=== PATIENT | male | born 1960 | race Caucasian/White ===

== ENCOUNTER 2017-03-23 06:59 | Inpatient (IN) | payer BC, MEDICAID ==
[~2017-03-23] VITALS: Ht 193 cm; Wt 133.5 kg
--- NOTE | 2017-03-23 07:25 | PHYS DOC ---
Past Medical History Past Medical History: No Pertinent History Past Surgical History: No Surgical History Alcohol Use: None Drug Use: None Adult General Chief Complaint Chief Complaint: ABDOMINAL PAIN HPI HPI Patient is a 56 year old male with no past medical history presents the ED complaining of abdominal pain 4 days. Patient states his pain is in the right lower quadrant. Describes a stabbing. Rates pain 8 out of 10. Denies diarrhea, bowel/bladder changes, blood in stool, vomiting, fever, chest pain, shortness of breath. Review of Systems Review of Systems Constitutional: Denies fever or chills [] Eyes: Denies change in visual acuity, redness, or eye pain [] HENT: Denies nasal congestion or sore throat [] Respiratory: Denies cough or shortness of breath [] Cardiovascular: No additional information not addressed in HPI [] GI: Complains of abdominal pain. Denies nausea, vomiting, bloody stools or diarrhea [] : Denies dysuria or hematuria [] Musculoskeletal: Denies back pain or joint pain [] Integument: Denies rash or skin lesions [] Neurologic: Denies headache, focal weakness or sensory changes [] Endocrine: Denies polyuria or polydipsia [] Current Medications Current Medications Current Medications Medications (Trade) Dose Ordered Sig/Wilma Start Time Stop Time Status Last Admin Dose Admin Hydromorphone HCl (Dilaudid) 0.5 mg 1X ONCE 03/23/17 08:30 03/23/17 08:31 DC 03/23/17 08:29 0.5 MG Info (Do NOT chart on this entry -- for MONITORING) 1 each PRN DAILY PRN 03/23/17 08:45 03/25/17 08:44 Iohexol (Omnipaque 300 Mg/ml) 75 ml 1X ONCE 03/23/17 08:45 03/23/17 08:46 DC 03/23/17 08:46 75 ML Morphine Sulfate 4 mg 1X ONCE 03/23/17 07:30 03/23/17 07:31 DC 03/23/17 07:43 4 MG Ondansetron HCl (Zofran) 4 mg 1X ONCE 03/23/17 07:30 03/23/17 07:31 DC 03/23/17 07:40 4 MG Sodium Chloride 1,000 ml @ 1,000 mls/hr 1X ONCE 03/23/17 09:30 03/23/17 10:29 DC 03/23/17 09:34 1,000 MLS/HR Allergies Allergies Allergies Coded Allergies Type Severity Reaction Last Updated Verified No Known Drug Allergies 03/23/17 No Physical Exam Physical Exam Constitutional: Well developed, well nourished, no acute distress, non-toxic appearance. [] HENT: Normocephalic, atraumatic, bilateral external ears normal, oropharynx moist, no oral exudates, nose normal. [] Eyes: PERRLA, EOMI, conjunctiva normal, no discharge. [] Neck: Normal range of motion, no tenderness, supple, no stridor. [] Cardiovascular:Heart rate regular rhythm, no murmur [] Lungs & Thorax: Bilateral breath sounds clear to auscultation [] Abdomen: Bowel sounds normal, soft, MILD RLQ TENDERNESS, no masses, no pulsatile masses. [] Skin: Warm, dry, no erythema, no rash. [] Back: No tenderness, no CVA tenderness. [] Extremities: No tenderness, no cyanosis, no clubbing, ROM intact, no edema. [] Neurologic: Alert and oriented X 3, normal motor function, normal sensory function, no focal deficits noted. [] Psychologic: Affect normal, judgement normal, mood normal. [] Current Patient Data Vital Signs Vital Signs Date Time Temp Pulse Resp B/P (MAP) Pulse Ox O2 Delivery O2 Flow Rate FiO2 03/23/17 09:24 72 20 134/77 (96) 95 Room Air 03/23/17 07:11 98.8 98.8 Lab Values Laboratory Tests Test 03/23/17 07:27 03/23/17 09:20 White Blood Count 12.6 x10^3/uL (4.0-11.0) H Red Blood Count 4.46 x10^6/uL (4.30-5.70) Hemoglobin 14.0 g/dL (13.0-17.5) Hematocrit 40.4 % (39.0-53.0) Mean Corpuscular Volume 91 fL (79-100) Mean Corpuscular Hemoglobin 31 pg (25-35) Mean Corpuscular Hemoglobin Concent 35 g/dL (31-37) Red Cell Distribution Width 13.1 % (11.5-14.5) Platelet Count 295 x10^3/uL (140-400) Prothrombin Time 13.9 SEC (11.7-14.0) Prothrombin Time INR 1.1 (0.8-1.1) PTT 26 SEC (24-38) Sodium Level 140 mmol/L (136-145) Potassium Level 4.2 mmol/L (3.5-5.1) Chloride Level 103 mmol/L (98-107) Carbon Dioxide Level 28 mmol/L (21-32) Anion Gap 9 (6-14) Blood Urea Nitrogen 13 mg/dL (8-26) Creatinine 1.1 mg/dL (0.7-1.3) Estimated GFR (Cockcroft-Gault) 68.8 BUN/Creatinine Ratio 12 (6-20) Glucose Level 140 mg/dL (70-99) H Calcium Level 8.9 mg/dL (8.5-10.1) Total Bilirubin 1.2 mg/dL (0.2-1.0) H Aspartate Amino Transferase (AST) 26 U/L (15-37) Alanine Aminotransferase (ALT) 49 U/L (16-63) Alkaline Phosphatase 110 U/L (46-116) Total Protein 7.7 g/dL (6.4-8.2) Albumin 3.6 g/dL (3.4-5.0) Albumin/Globulin Ratio 0.9 (1.0-1.7) L Lipase 133 U/L (73-393) Urine Collection Type Void Urine Color [place] Urine Clarity Clear Urine pH 6.0 Urine Specific [place] >=1.030 Urine Protein Negative mg/dL (NEG-TRACE) Urine Glucose (UA) Negative mg/dL (NEG) Urine Ketones (Stick) Negative mg/dL (NEG) Urine Blood Negative (NEG) Urine Nitrite Negative (NEG) Urine Bilirubin Negative (NEG) Urine Urobilinogen Dipstick 0.2 mg/dL (0.2 mg/dL) Urine Leukocyte Esterase Negative (NEG) Urine RBC Rare /HPF (0-2) Urine WBC 0 /HPF (0-4) Urine Bacteria 0 /HPF (0-FEW) Urine Mucus Marked /LPF Laboratory Tests 03/23/17 07:27 Laboratory Tests 03/23/17 07:27 EKG EKG [] Radiology/Procedures Radiology/Procedures PROCEDURE: CT ABD PELV W/ IV CONTRST ONLY Examination: CT of the abdomen pelvis with IV contrast. History: History of right lower quadrant tenderness, appendicitis. Comparison: None available Technique: Axial CT images of the abdomen pelvis were performed with IV contrast. Coronal and sagittal reformats are performed. PQRS Compliance Statement: One or more of the following individualized dose reduction techniques were utilized for this examination: 1. Automated exposure control 2. Adjustment of the mA and/or kV according to patient size 3. Use of iterative reconstruction technique Findings: Minimal bibasal lung atelectasis. No evidence of free air identified in the abdomen. The visualized liver, spleen, adrenals grossly appears unremarkable. The gallbladder is mildly distended. The stomach is mildly distended. The visualized pancreas grossly appears unremarkable. The small bowel is nondilated. There is severe inflammatory fat stranding identified in the right lower quadrant abdomen likely ruptured appendix with acute appendicitis. There is a 5.1 x 3.1 cm fluid density identified in the right lower quadrant around the ruptured appendix could be phlegmonous change or due to inflammation. Feces and gas noted in the colon Mild thickened appearance of the distal terminal ileum probably secondary to adjacent inflammation The bilateral kidneys enhance symmetrically. Minimal prominent appearing right renal pelvis. Urinary bladder is mildly distended. Moderate aortic atherosclerosis. No evidence of lytic bony destructive lesion. Moderate degenerative changes left hip joint. Impression: 1. Findings consistent with ruptured acute appendicitis. ER physician informed at time of dictation.[] Course & Med Decision Making Course & Med Decision Making Pertinent Labs and Imaging studies reviewed. (See chart for details) []Discussed case with on-call surgeon, Dr. Lopez. He evaluated patient at bedside. States to initiate IV antibiotics and surgery is not needed at this time. Patient is hemodynamically stable. Pain controlled. Patient resting comfortable. Discussed case with hospitalist, Dr. Martinez. Agrees to admission and further management patient. Patient stable for admission. Dragon Disclaimer Dragon Disclaimer This electronic medical record was generated, in whole or in part, using a voice recognition dictation system. Departure Departure Impression: Primary Impression: Ruptured appendicitis Disposition: 09 ADMITTED INPATIENT Admitting Physician: Kim Martinez Referrals: JAQUI CALHOUN (PCP) Scripts No Active Prescriptions or Reported Meds MORELIA LEÓN Mar 23, 2017 07:25
[2017-03-23] MEDS ORDERED: ONDANSETRON PF 4 MG/2 ML VIAL. IV ONE (07:30)
[2017-03-23] MEDS ORDERED: MORPHINE SULFATE 4 MG/ML DISP.SYRIN. IV ONE (07:30)
[2017-03-23 07:53] LABS: CALCIUM 8.9 mg/dL (8.5-10.1); CREATININE 1.1 mg/dL (0.7-1.3); GFR 68.8; POTASSIUM 4.2 mmol/L (3.5-5.1)
[2017-03-23 08:00] LABS: ALBUMIN 3.6 g/dL (3.4-5.0); ALBUMIN/GLOBULIN RATIO 0.9 (1.0-1.7); HEMATOCRIT 40.4 % (39.0-53.0); RED BLOOD COUNT 4.46 x10^6/uL (4.30-5.70); RED CELL DISTRIBUTION WIDTH 13.1 % (11.5-14.5); TOTAL BILIRUBIN 1.2 mg/dL (0.2-1.0); TOTAL PROTEIN 7.7 g/dL (6.4-8.2); WHITE BLOOD COUNT 12.6 x10^3/uL (4.0-11.0)
[2017-03-23] MEDS ORDERED: HYDROmorphone 2 MG/ML VIAL IV ONE (08:30)
[2017-03-23] MEDS ORDERED: IOHEXOL 300 MG/ML 75 ML VIAL IV ONE (08:45)
[2017-03-23] MEDS ORDERED: CONTRAST GIVEN MC PRN (08:45)
[2017-03-23] MEDS ORDERED: IV NORMAL SALINE 1000ML BAG 1,000 ML IV ONE (09:30)
--- NOTE | 2017-03-23 09:30 | RAD ---
Examination: CT of the abdomen pelvis with IV contrast. History: History of right lower quadrant tenderness, appendicitis. Comparison: None available Technique: Axial CT images of the abdomen pelvis were performed with IV contrast. Coronal and sagittal reformats are performed. PQRS Compliance Statement: One or more of the following individualized dose reduction techniques were utilized for this examination: 1. Automated exposure control 2. Adjustment of the mA and/or kV according to patient size 3. Use of iterative reconstruction technique Findings: Minimal bibasal lung atelectasis. No evidence of free air identified in the abdomen. The visualized liver, spleen, adrenals grossly appears unremarkable. The gallbladder is mildly distended. The stomach is mildly distended. The visualized pancreas grossly appears unremarkable. The small bowel is nondilated. There is severe inflammatory fat stranding identified in the right lower quadrant abdomen likely ruptured appendix with acute appendicitis. There is a 5.1 x 3.1 cm fluid density identified in the right lower quadrant around the ruptured appendix could be phlegmonous change or due to inflammation. Feces and gas noted in the colon Mild thickened appearance of the distal terminal ileum probably secondary to adjacent inflammation The bilateral kidneys enhance symmetrically. Minimal prominent appearing right renal pelvis. Urinary bladder is mildly distended. Moderate aortic atherosclerosis. No evidence of lytic bony destructive lesion. Moderate degenerative changes left hip joint. Impression: 1. Findings consistent with ruptured acute appendicitis. ER physician informed at time of dictation.
[2017-03-23 09:54] LABS: BILIRUBIN,URINE NEGATIVE (NEG); GLUCOSE,URINE NEGATIVE (NEG); NITRITE,URINE NEGATIVE (NEG); PROTEIN,URINE NEGATIVE (NEG-TRACE); UROBILINOGEN,URINE 0.2 mg/dL (0.2 mg/dL)
[2017-03-23 09:55] LABS: BACTERIA,URINE 0 /HPF (0-FEW); RBC,URINE RARE /HPF (0-2); WBC,URINE 0 /HPF (0-4)
[2017-03-23] MEDS ORDERED: PIPERACILLIN/TAZOBACTAM 4.5 GM in IV NORMAL SALINE 100ML 100 ML IV ONE (10:00)
[2017-03-23 10:05] LABS: INR 1.1 (0.8-1.1); PROTHROMBIN TIME PATIENT 13.9 SEC (11.7-14.0)
[2017-03-23] MEDS ORDERED: ONDANSETRON PF 4 MG/2 ML VIAL. IV PRN (10:45)
[2017-03-23] MEDS: MORPHINE SULFATE 4 MG/ML DISP.SYRIN. IV PRN ×4 (11:23→23:58)
--- NOTE | 2017-03-23 11:33 | PDOC2 ---
CONSULT Date of Consult Date of Consult DATE: 03/23/17 TIME: 11:27 Reason for Consult Reason for Consult: Perforated appendicitis Referring Physician Referring Physician: Levi Identification/Chief Complaint Chief Complaint RLQ abd pain Problems: Source Source: Patient History of Present Illness Reason for Visit: 56 yo M with 4 day history of RLQ abd pain. Worsened yesterday. Presented to ER given not improving. Currently, feels much better. Denies N/V/F/c and would like to eat. No previous episodes. He has not had colonoscopy. Past Medical History Cardiovascular: No pertinent hx Past Surgical History Past Surgical History: No pertinent history Family History Family History: Cancer (notes multiple deaths from cancer in family both sides) Social History No ALCOHOL: rare Drugs: None Current Medications Current Medications Current Medications Morphine Sulfate 4 mg 1X ONCE IV Last administered on 03/23/17 07:43; Start 03/23/17 at 07:30; Stop 03/23/17 at 07:31; Status DC Ondansetron HCl (Zofran) 4 mg 1X ONCE IV Last administered on 03/23/17 07:40 ; Start 03/23/17 at 07:30; Stop 03/23/17 at 07:31; Status DC Hydromorphone HCl (Dilaudid) 0.5 mg 1X ONCE IV Last administered on 03/23/17 08:29; Start 03/23/17 at 08:30; Stop 03/23/17 at 08:31; Status DC Iohexol (Omnipaque 300 Mg/ml) 75 ml 1X ONCE IV Last administered on 03/23/17 08:46; Start 03/23/17 at 08:45; Stop 03/23/17 at 08:46; Status DC Info (Do NOT chart on this entry -- for MONITORING) 1 each PRN DAILY PRN MC SEE COMMENTS; Start 03/23/17 at 08:45; Stop 03/25/17 at 08:44 Sodium Chloride 1,000 ml @ 1,000 mls/hr 1X ONCE IV Last administered on 09:34; Start 03/23/17 at 09:30; Stop 03/23/17 at 10:29; Status DC Piperacillin Sod/ Tazobactam Sod 4.5 gm/Sodium Chloride 100 ml @ 200 mls/hr 1X ONCE IV Last administered on 9/26/17at 10:20; Start 03/23/17 at 10:00; Stop 03/23/17 at 10:29; Status DC Ondansetron HCl (Zofran) 4 mg PRN Q8HRS PRN IV NAUSEA/VOMITING; Start 03/23/17 at 10:45; Stop 03/24/17 at 10:44 Morphine Sulfate 4 mg PRN Q2HR PRN IV PAIN Last administered on 03/23/17 11:23 ; Start 03/23/17 at 10:45; Stop 03/24/17 at 10:44 Active Scripts Active No Active Prescriptions or Reported Medications Allergies Allergies: Coded Allergies: No Known Drug Allergies (Unverified , 03/23/17) ROS Gastrointestinal: Yes Abdominal Pain Physical Exam General: Alert, Oriented X3, Cooperative, No acute distress HEENT: Atraumatic, EOMI Lungs: Normal air movement Abdomen: Soft, Other (TTP RLQ, severe obesity) Vitals VITALS Vital Signs Date Time Temp Pulse Resp B/P (MAP) Pulse Ox O2 Delivery O2 Flow Rate FiO2 03/23/17 11:23 18 96 Room Air 03/23/17 11:17 67 135/77 (96) 03/23/17 07:11 98.8 98.8 Labs Labs Laboratory Tests Test 03/23/17 07:27 03/23/17 09:20 03/23/17 09:50 White Blood Count 12.6 x10^3/uL (4.0-11.0) Red Blood Count 4.46 x10^6/uL (4.30-5.70) Hemoglobin 14.0 g/dL (13.0-17.5) Hematocrit 40.4 % (39.0-53.0) Mean Corpuscular Volume 91 fL (79-100) Mean Corpuscular Hemoglobin 31 pg (25-35) Mean Corpuscular Hemoglobin Concent 35 g/dL (31-37) Red Cell Distribution Width 13.1 % (11.5-14.5) Platelet Count 295 x10^3/uL (140-400) Prothrombin Time 13.9 SEC (11.7-14.0) Prothromb Time International Ratio 1.1 (0.8-1.1) Activated Partial Thromboplast Time 26 SEC (24-38) Sodium Level 140 mmol/L (136-145) Potassium Level 4.2 mmol/L (3.5-5.1) Chloride Level 103 mmol/L (98-107) Carbon Dioxide Level 28 mmol/L (21-32) Anion Gap 9 (6-14) Blood Urea Nitrogen 13 mg/dL (8-26) Creatinine 1.1 mg/dL (0.7-1.3) Estimated GFR (Cockcroft-Gault) 68.8 BUN/Creatinine Ratio 12 (6-20) Glucose Level 140 mg/dL (70-99) Calcium Level 8.9 mg/dL (8.5-10.1) Total Bilirubin 1.2 mg/dL (0.2-1.0) Aspartate Amino Transf (AST/SGOT) 26 U/L (15-37) Alanine Aminotransferase (ALT/SGPT) 49 U/L (16-63) Alkaline Phosphatase 110 U/L (46-116) Total Protein 7.7 g/dL (6.4-8.2) Albumin 3.6 g/dL (3.4-5.0) Albumin/Globulin Ratio 0.9 (1.0-1.7) Lipase 133 U/L (73-393) Urine Collection Type Void Urine Color [place] Urine Clarity Clear Urine pH 6.0 Urine Specific [place] >=1.030 Urine Protein Negative mg/dL (NEG-TRACE) Urine Glucose (UA) Negative mg/dL (NEG) Urine Ketones (Stick) Negative mg/dL (NEG) Urine Blood Negative (NEG) Urine Nitrite Negative (NEG) Urine Bilirubin Negative (NEG) Urine Urobilinogen Dipstick 0.2 mg/dL (0.2 mg/dL) Urine Leukocyte Esterase Negative (NEG) Urine RBC Rare /HPF (0-2) Urine WBC 0 /HPF (0-4) Urine Bacteria 0 /HPF (0-FEW) Urine Mucus Marked /LPF Lactic Acid Level 0.9 mmol/L (0.4-2.0) Laboratory Tests Test 03/23/17 07:27 03/23/17 09:20 03/23/17 09:50 White Blood Count 12.6 x10^3/uL (4.0-11.0) Red Blood Count 4.46 x10^6/uL (4.30-5.70) Hemoglobin 14.0 g/dL (13.0-17.5) Hematocrit 40.4 % (39.0-53.0) Mean Corpuscular Volume 91 fL (79-100) Mean Corpuscular Hemoglobin 31 pg (25-35) Mean Corpuscular Hemoglobin Concent 35 g/dL (31-37) Red Cell Distribution Width 13.1 % (11.5-14.5) Platelet Count 295 x10^3/uL (140-400) Prothrombin Time 13.9 SEC (11.7-14.0) Prothromb Time International Ratio 1.1 (0.8-1.1) Activated Partial Thromboplast Time 26 SEC (24-38) Sodium Level 140 mmol/L (136-145) Potassium Level 4.2 mmol/L (3.5-5.1) Chloride Level 103 mmol/L (98-107) Carbon Dioxide Level 28 mmol/L (21-32) Anion Gap 9 (6-14) Blood Urea Nitrogen 13 mg/dL (8-26) Creatinine 1.1 mg/dL (0.7-1.3) Estimated GFR (Cockcroft-Gault) 68.8 BUN/Creatinine Ratio 12 (6-20) Glucose Level 140 mg/dL (70-99) Calcium Level 8.9 mg/dL (8.5-10.1) Total Bilirubin 1.2 mg/dL (0.2-1.0) Aspartate Amino Transf (AST/SGOT) 26 U/L (15-37) Alanine Aminotransferase (ALT/SGPT) 49 U/L (16-63) Alkaline Phosphatase 110 U/L (46-116) Total Protein 7.7 g/dL (6.4-8.2) Albumin 3.6 g/dL (3.4-5.0) Albumin/Globulin Ratio 0.9 (1.0-1.7) Lipase 133 U/L (73-393) Urine Collection Type Void Urine Color [place] Urine Clarity Clear Urine pH 6.0 Urine Specific [place] >=1.030 Urine Protein Negative mg/dL (NEG-TRACE) Urine Glucose (UA) Negative mg/dL (NEG) Urine Ketones (Stick) Negative mg/dL (NEG) Urine Blood Negative (NEG) Urine Nitrite Negative (NEG) Urine Bilirubin Negative (NEG) Urine Urobilinogen Dipstick 0.2 mg/dL (0.2 mg/dL) Urine Leukocyte Esterase Negative (NEG) Urine RBC Rare /HPF (0-2) Urine WBC 0 /HPF (0-4) Urine Bacteria 0 /HPF (0-FEW) Urine Mucus Marked /LPF Lactic Acid Level 0.9 mmol/L (0.4-2.0) Images Images CT c/w perforated appendicitis with 5 cm phlegmon, report and images reviewed Assessment/Plan Assessment/Plan Perforated appendicitis Surgical intervention at this time with significant risk. Patient clinically looks very stable, and would actually like to eat. As such, will treat with observation and IV abx. He may require abscess drainage. Delayed appendectomy will be considered in 6 weeks. Colonoscopy is encouraged at some time, as well. R/B/a d/w pt to current plan. He appears to understand and agrees to plan. Thank you for consultation! MARGOTH SAUNDERS MD Mar 23, 2017 11:33
[2017-03-23] MEDS ORDERED: PIP/TAZO PER PHARMACY MC PRN (14:45)
[2017-03-23] MEDS: PIPERACILLIN/TAZOBACTAM 3.375 GM in IV NORMAL SALINE 50ML 50 ML IV SCH ×3 (14:58→23:57)
[2017-03-23 15:00] VITALS: BP 129/80
--- NOTE | 2017-03-23 16:55 | PDOC1 ---
History and Physical Date of Admission Date of Admission DATE: 03/23/17 TIME: 16:50 Identification/Chief Complaint Chief Complaint abdomen pain Problems: Source Source: Chart review, Patient History of Present Illness History of Present Illness Patient is a 56 year old male admit with acute abdominal pain, worsening 4 days. Pain too severe to stay home today, pain 8/10 before pain meds. RLQ pain and pain worse to walk, no recent injury, no fever or chills or sweats Denies diarrhea, bowel/bladder changes, blood in stool, vomiting, fever, chest pain, shortness of breath. 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 Past Medical History Cardiovascular: No pertinent hx Pulmonary: No pertinent hx GI: No pertinent hx Heme/Onc: No pertinent hx Hepatobiliary: No pertinent hx Psych: No pertinent hx Rheumatologic: No pertinent hx Past Surgical History Past Surgical History: No pertinent history Family History Family History: Cancer (notes multiple deaths from cancer in family both sides) Social History Smoke: Quit (> 20 years ago) ALCOHOL: rare Drugs: None Current Problem List Problem List Problems Medical Problems: (1) Ruptured appendicitis Status: Acute Problems: Current Medications Current Medications Current Medications Morphine Sulfate 4 mg 1X ONCE IV Last administered on 03/23/17 07:43; Start 03/23/17 at 07:30; Stop 03/23/17 at 07:31; Status DC Ondansetron HCl (Zofran) 4 mg 1X ONCE IV Last administered on 03/23/17 07:40 ; Start 03/23/17 at 07:30; Stop 03/23/17 at 07:31; Status DC Hydromorphone HCl (Dilaudid) 0.5 mg 1X ONCE IV Last administered on 03/23/17 08:29; Start 03/23/17 at 08:30; Stop 03/23/17 at 08:31; Status DC Iohexol (Omnipaque 300 Mg/ml) 75 ml 1X ONCE IV Last administered on 03/23/17 08:46; Start 03/23/17 at 08:45; Stop 03/23/17 at 08:46; Status DC Info (Do NOT chart on this entry -- for MONITORING) 1 each PRN DAILY PRN MC SEE COMMENTS; Start 03/23/17 at 08:45; Stop 03/25/17 at 08:44 Sodium Chloride 1,000 ml @ 1,000 mls/hr 1X ONCE IV Last administered on 09:34; Start 03/23/17 at 09:30; Stop 03/23/17 at 10:29; Status DC Piperacillin Sod/ Tazobactam Sod 4.5 gm/Sodium Chloride 100 ml @ 200 mls/hr 1X ONCE IV Last administered on 03/23/17 10:20; Start 03/23/17 at 10:00; Stop 03/23/17 at 10:29; Status DC Ondansetron HCl (Zofran) 4 mg PRN Q8HRS PRN IV NAUSEA/VOMITING; Start 03/23/17 at 10:45; Stop 03/24/17 at 10:44 Morphine Sulfate 4 mg PRN Q2HR PRN IV PAIN Last administered on 03/23/17 14:58 ; Start 03/23/17 at 10:45; Stop 03/24/17 at 10:44 Oxycodone/ Acetaminophen (Percocet 5/325) 1 tab PRN Q4HRS PRN PO PAIN; Start at 14:45 Piperacillin Sod/ Tazobactam Sod (Zosyn Per Pharmacy) 1 each PRN DAILY PRN MC SEE COMMENTS; Start 03/23/17 at 14:45 Piperacillin Sod/ Tazobactam Sod 3.375 gm/Sodium Chloride 50 ml @ 100 mls/hr Q6HRS IV Last administered on 03/23/17 14:58; Start 03/23/17 at 15:00 Active Scripts Active No Active Prescriptions or Reported Medications Allergies Allergies: Coded Allergies: No Known Drug Allergies (Unverified , 03/23/17) ROS General: YES: Malaise, Appetite, No: Chills, Night Sweats, Fatigue, Other PSYCHOLOGICAL ROS: No: Anxiety, Behavioral Disorder, Concentration difficultie , Decreased libido, Depression, Disorientation, Hallucinations, Hostility, Irritablity, Memory difficulties, Mood Swings, Obsessive thoughts, Other Eyes: No Blurry vision, No Decreased vision, No Double vision, No Dry eyes, No Excessive tearing, No Eye Pain, No Itchy Eyes, No Loss of vision, No Photophobia , No Scotomata, No Uses contacts, No Uses glasses, No Other HEENT: No: Heacaches, Visual Changes, Hearing change, Nasal congestion, Nasal discharge, Oral lesions, Sinus pain, Sore Throat, Epistaxis, Sneezing, Snoring, Tinnitus, Vertigo, Vocal changes, Other Respiratory: No: Cough, Hemoptysis, Orthopnea, Pleuritic Pain, Shortness of breath, SOB with excertion, Sputum Changes, Stridor, Tachypnea, Wheezing, Other Cardiovascular: No Chest Pain, No Palpitations, No Orthopnea, No Paroxysmal Noc. Dyspnea, No Edema, No Lt Headedness, No Other Gastrointestinal: Yes Nausea, Yes Abdominal Pain, No Vomiting, No Diarrhea, No Constipation, No Melena, No Hematochezia, No Other Genitourinary: No Dysuria, No Frequency, No Incontinence, No Hematuria, No Retention, No Discharge, No Urgency, No Pain, No Flank Pain, No Other, No , No , No , No , No , No , No Musculoskeletal: No Gait Disturbance, No Joint Pain, No Joint Stiffness, No Joint Swelling, No Muscle Pain, No Muscular Weakness, No Pain In:, No Swelling In:, No Other Neurological: No Behavorial Changes, No Bowel/Bladder ControlChng, No Confusion , No Dizziness, No Gait Disturbance, No Headaches, No Impaired Coord/balance, No Memory Loss, No Numbness/Tingling, No Seizures, No Speech Problems, No Tremors, No Visual Changes, No Weakness, No Other Skin: No Dry Skin, No Eczema, No Hair Changes, No Lumps, No Mole Changes, No Mottling, No Nail Changes, No Pruritus, No Rash, No Skin Lesion Changes, No Other, No Acne Physical Exam General: Alert, Oriented X3, Cooperative HEENT: Atraumatic Lungs: Clear to auscultation, Normal air movement Heart: no gallops, no murmurs Abdomen: Normal bowel sounds (tender, ), Other (guarding, no acute abd) Rectal Exam: not examined Extremities: No clubbing Skin: No rashes, No breakdown Neuro: Normal speech, Sensation intact, Cranial nerves 3-12 NL Psych/Mental Status: Mood NL Vitals Vitals Vital Signs Date Time Temp Pulse Resp B/P (MAP) Pulse Ox O2 Delivery O2 Flow Rate FiO2 03/23/17 15:28 Room Air 03/23/17 13:01 67 16 146/90 (108) 96 03/23/17 07:11 98.8 98.8 Labs Labs Laboratory Tests Test 03/23/17 07:27 03/23/17 09:20 03/23/17 09:50 White Blood Count 12.6 x10^3/uL (4.0-11.0) Red Blood Count 4.46 x10^6/uL (4.30-5.70) Hemoglobin 14.0 g/dL (13.0-17.5) Hematocrit 40.4 % (39.0-53.0) Mean Corpuscular Volume 91 fL (79-100) Mean Corpuscular Hemoglobin 31 pg (25-35) Mean Corpuscular Hemoglobin Concent 35 g/dL (31-37) Red Cell Distribution Width 13.1 % (11.5-14.5) Platelet Count 295 x10^3/uL (140-400) Prothrombin Time 13.9 SEC (11.7-14.0) Prothromb Time International Ratio 1.1 (0.8-1.1) Activated Partial Thromboplast Time 26 SEC (24-38) Sodium Level 140 mmol/L (136-145) Potassium Level 4.2 mmol/L (3.5-5.1) Chloride Level 103 mmol/L (98-107) Carbon Dioxide Level 28 mmol/L (21-32) Anion Gap 9 (6-14) Blood Urea Nitrogen 13 mg/dL (8-26) Creatinine 1.1 mg/dL (0.7-1.3) Estimated GFR (Cockcroft-Gault) 68.8 BUN/Creatinine Ratio 12 (6-20) Glucose Level 140 mg/dL (70-99) Calcium Level 8.9 mg/dL (8.5-10.1) Total Bilirubin 1.2 mg/dL (0.2-1.0) Aspartate Amino Transf (AST/SGOT) 26 U/L (15-37) Alanine Aminotransferase (ALT/SGPT) 49 U/L (16-63) Alkaline Phosphatase 110 U/L (46-116) Total Protein 7.7 g/dL (6.4-8.2) Albumin 3.6 g/dL (3.4-5.0) Albumin/Globulin Ratio 0.9 (1.0-1.7) Lipase 133 U/L (73-393) Urine Collection Type Void Urine Color [place] Urine Clarity Clear Urine pH 6.0 Urine Specific [place] >=1.030 Urine Protein Negative mg/dL (NEG-TRACE) Urine Glucose (UA) Negative mg/dL (NEG) Urine Ketones (Stick) Negative mg/dL (NEG) Urine Blood Negative (NEG) Urine Nitrite Negative (NEG) Urine Bilirubin Negative (NEG) Urine Urobilinogen Dipstick 0.2 mg/dL (0.2 mg/dL) Urine Leukocyte Esterase Negative (NEG) Urine RBC Rare /HPF (0-2) Urine WBC 0 /HPF (0-4) Urine Bacteria 0 /HPF (0-FEW) Urine Mucus Marked /LPF Lactic Acid Level 0.9 mmol/L (0.4-2.0) Laboratory Tests Test 03/23/17 07:27 03/23/17 09:20 03/23/17 09:50 White Blood Count 12.6 x10^3/uL (4.0-11.0) Red Blood Count 4.46 x10^6/uL (4.30-5.70) Hemoglobin 14.0 g/dL (13.0-17.5) Hematocrit 40.4 % (39.0-53.0) Mean Corpuscular Volume 91 fL (79-100) Mean Corpuscular Hemoglobin 31 pg (25-35) Mean Corpuscular Hemoglobin Concent 35 g/dL (31-37) Red Cell Distribution Width 13.1 % (11.5-14.5) Platelet Count 295 x10^3/uL (140-400) Prothrombin Time 13.9 SEC (11.7-14.0) Prothromb Time International Ratio 1.1 (0.8-1.1) Activated Partial Thromboplast Time 26 SEC (24-38) Sodium Level 140 mmol/L (136-145) Potassium Level 4.2 mmol/L (3.5-5.1) Chloride Level 103 mmol/L (98-107) Carbon Dioxide Level 28 mmol/L (21-32) Anion Gap 9 (6-14) Blood Urea Nitrogen 13 mg/dL (8-26) Creatinine 1.1 mg/dL (0.7-1.3) Estimated GFR (Cockcroft-Gault) 68.8 BUN/Creatinine Ratio 12 (6-20) Glucose Level 140 mg/dL (70-99) Calcium Level 8.9 mg/dL (8.5-10.1) Total Bilirubin 1.2 mg/dL (0.2-1.0) Aspartate Amino Transf (AST/SGOT) 26 U/L (15-37) Alanine Aminotransferase (ALT/SGPT) 49 U/L (16-63) Alkaline Phosphatase 110 U/L (46-116) Total Protein 7.7 g/dL (6.4-8.2) Albumin 3.6 g/dL (3.4-5.0) Albumin/Globulin Ratio 0.9 (1.0-1.7) Lipase 133 U/L (73-393) Urine Collection Type Void Urine Color [place] Urine Clarity Clear Urine pH 6.0 Urine Specific [place] >=1.030 Urine Protein Negative mg/dL (NEG-TRACE) Urine Glucose (UA) Negative mg/dL (NEG) Urine Ketones (Stick) Negative mg/dL (NEG) Urine Blood Negative (NEG) Urine Nitrite Negative (NEG) Urine Bilirubin Negative (NEG) Urine Urobilinogen Dipstick 0.2 mg/dL (0.2 mg/dL) Urine Leukocyte Esterase Negative (NEG) Urine RBC Rare /HPF (0-2) Urine WBC 0 /HPF (0-4) Urine Bacteria 0 /HPF (0-FEW) Urine Mucus Marked /LPF Lactic Acid Level 0.9 mmol/L (0.4-2.0) VTE Prophylaxis Ordered VTE Prophylaxis Devices: Yes VTE Pharmacological Prophylaxi: No Assessment/Plan Assessment/Plan acute abdominal pain appendicitis, w/ leukocytosis only \ CT scan shows ruptured appendix, but patient appears calm with pain, vitals look good. Gen surg consulted, ID consulted, abx started obesity, BMI 36 RAOUL ESTRADA MD Mar 23, 2017 16:55
[2017-03-23 19:00] VITALS: BP 135/85
[2017-03-23] MEDS: oxyCODONE/APAP 5/325 1 TAB TABLET PO PRN (21:23)
[2017-03-23 23:00] VITALS: BP 124/73
[2017-03-24] VITALS (7 sets, daily range): BP systolic 109–168; BP diastolic 53–91
[2017-03-24] MEDS: oxyCODONE/APAP 5/325 1 TAB TABLET PO PRN ×6 (01:44→20:48)
[2017-03-24] MEDS: MORPHINE SULFATE 4 MG/ML DISP.SYRIN. IV PRN (04:32)
[2017-03-24 05:24] LABS: BASO % 0 % (0-3); EOS % 3 % (0-3); HEMATOCRIT 37.5 % (39.0-53.0); HEMOGLOBIN 13.3 g/dL (13.0-17.5); LYMPH # 1.8 x10^3/uL (1.0-4.8); LYMPH % 16 % (24-48); MEAN CORPUSCULAR HEMOGLOBIN 32 pg (25-35); MEAN CORPUSCULAR HGB CONC 35 g/dL (31-37); MEAN CORPUSCULAR VOLUME 90 fL (79-100); MONO % 12 % (0-9); NEUT % 69 % (31-73); PLATELET COUNT 307 x10^3/uL (140-400); RED BLOOD COUNT 4.19 x10^6/uL (4.30-5.70); RED CELL DISTRIBUTION WIDTH 13.2 % (11.5-14.5); WHITE BLOOD COUNT 11.4 x10^3/uL (4.0-11.0)
[2017-03-24] MEDS: PIPERACILLIN/TAZOBACTAM 3.375 GM in IV NORMAL SALINE 50ML 50 ML IV SCH ×3 (05:35→18:19)
[2017-03-24 06:00] LABS: ALBUMIN 3.1 g/dL (3.4-5.0); ALBUMIN/GLOBULIN RATIO 0.8 (1.0-1.7); CALCIUM 9.1 mg/dL (8.5-10.1); CREATININE 1.1 mg/dL (0.7-1.3); GFR 68.8; POTASSIUM 4.5 mmol/L (3.5-5.1); TOTAL BILIRUBIN 0.9 mg/dL (0.2-1.0)
--- NOTE | 2017-03-24 08:55 | PDOC ---
Infectious Disease Note Vital Sign Vital Signs Vital Signs Date Time Temp Pulse Resp B/P (MAP) Pulse Ox O2 Delivery O2 Flow Rate FiO2 03/24/17 07:00 99.7 68 18 114/68 (83) 95 Room Air 99.7 Labs Lab Laboratory Tests Test 03/23/17 09:20 03/23/17 09:50 03/24/17 04:20 Urine Collection Type Void Urine Color [place] Urine Clarity Clear Urine pH 6.0 Urine Specific [place] >=1.030 Urine Protein Negative mg/dL (NEG-TRACE) Urine Glucose (UA) Negative mg/dL (NEG) Urine Ketones (Stick) Negative mg/dL (NEG) Urine Blood Negative (NEG) Urine Nitrite Negative (NEG) Urine Bilirubin Negative (NEG) Urine Urobilinogen Dipstick 0.2 mg/dL (0.2 mg/dL) Urine Leukocyte Esterase Negative (NEG) Urine RBC Rare /HPF (0-2) Urine WBC 0 /HPF (0-4) Urine Bacteria 0 /HPF (0-FEW) Urine Mucus Marked /LPF Lactic Acid Level 0.9 mmol/L (0.4-2.0) White Blood Count 11.4 x10^3/uL (4.0-11.0) Red Blood Count 4.19 x10^6/uL (4.30-5.70) Hemoglobin 13.3 g/dL (13.0-17.5) Hematocrit 37.5 % (39.0-53.0) Mean Corpuscular Volume 90 fL (79-100) Mean Corpuscular Hemoglobin 32 pg (25-35) Mean Corpuscular Hemoglobin Concent 35 g/dL (31-37) Red Cell Distribution Width 13.2 % (11.5-14.5) Platelet Count 307 x10^3/uL (140-400) Neutrophils (%) (Auto) 69 % (31-73) Lymphocytes (%) (Auto) 16 % (24-48) Monocytes (%) (Auto) 12 % (0-9) Eosinophils (%) (Auto) 3 % (0-3) Basophils (%) (Auto) 0 % (0-3) Neutrophils # (Auto) 7.9 x10^3uL (1.8-7.7) Lymphocytes # (Auto) 1.8 x10^3/uL (1.0-4.8) Monocytes # (Auto) 1.4 x10^3/uL (0.0-1.1) Eosinophils # (Auto) 0.3 x10^3/uL (0.0-0.7) Basophils # (Auto) 0.0 x10^3/uL (0.0-0.2) Sodium Level 140 mmol/L (136-145) Potassium Level 4.5 mmol/L (3.5-5.1) Chloride Level 103 mmol/L (98-107) Carbon Dioxide Level 31 mmol/L (21-32) Anion Gap 6 (6-14) Blood Urea Nitrogen 11 mg/dL (8-26) Creatinine 1.1 mg/dL (0.7-1.3) Estimated GFR (Cockcroft-Gault) 68.8 BUN/Creatinine Ratio 10 (6-20) Glucose Level 95 mg/dL (70-99) Calcium Level 9.1 mg/dL (8.5-10.1) Total Bilirubin 0.9 mg/dL (0.2-1.0) Aspartate Amino Transf (AST/SGOT) 21 U/L (15-37) Alanine Aminotransferase (ALT/SGPT) 33 U/L (16-63) Alkaline Phosphatase 100 U/L (46-116) Total Protein 7.0 g/dL (6.4-8.2) Albumin 3.1 g/dL (3.4-5.0) Albumin/Globulin Ratio 0.8 (1.0-1.7) Objective Assessment Appendicitis with rupture Leukocytosis Abdominal pain Plan Plan of Care cont zosyn likely will develop abscess ARANZA HERNANDEZ MD Mar 24, 2017 08:55
--- NOTE | 2017-03-24 12:37 | PDOC ---
PROGRESS NOTES Chief Complaint Chief Complaint ruptured appendicitis ASSESSMENT AND PLAN: 1. Ruptured appendix: surgical and ID consult appreciated. OR to risky at this time. on Abx; plan for 1 week min IV Abx, close F/U with surgery 2. Nutrition: advance diet; ok to D/C home per surg. 3. IV access: need PICC line for continued Abx. History of Present Illness History of Present Illness feels ok, pain minimal, tolerating clear liquids. Vitals Vitals Vital Signs Date Time Temp Pulse Resp B/P (MAP) Pulse Ox O2 Delivery O2 Flow Rate FiO2 03/24/17 11:35 16 95 Room Air 03/24/17 11:00 97.7 61 119/74 (89) 97.7 Physical Exam General: Alert, Oriented X3, Cooperative Heart: Regular rate Lungs: Clear Abdomen: Normal bowel sounds, Other (no guarding, mild TTP) Extremities: No edema Skin: No rashes Labs LABS Laboratory Tests Test 03/24/17 04:20 White Blood Count 11.4 x10^3/uL (4.0-11.0) Red Blood Count 4.19 x10^6/uL (4.30-5.70) Hemoglobin 13.3 g/dL (13.0-17.5) Hematocrit 37.5 % (39.0-53.0) Mean Corpuscular Volume 90 fL (79-100) Mean Corpuscular Hemoglobin 32 pg (25-35) Mean Corpuscular Hemoglobin Concent 35 g/dL (31-37) Red Cell Distribution Width 13.2 % (11.5-14.5) Platelet Count 307 x10^3/uL (140-400) Neutrophils (%) (Auto) 69 % (31-73) Lymphocytes (%) (Auto) 16 % (24-48) Monocytes (%) (Auto) 12 % (0-9) Eosinophils (%) (Auto) 3 % (0-3) Basophils (%) (Auto) 0 % (0-3) Neutrophils # (Auto) 7.9 x10^3uL (1.8-7.7) Lymphocytes # (Auto) 1.8 x10^3/uL (1.0-4.8) Monocytes # (Auto) 1.4 x10^3/uL (0.0-1.1) Eosinophils # (Auto) 0.3 x10^3/uL (0.0-0.7) Basophils # (Auto) 0.0 x10^3/uL (0.0-0.2) Sodium Level 140 mmol/L (136-145) Potassium Level 4.5 mmol/L (3.5-5.1) Chloride Level 103 mmol/L (98-107) Carbon Dioxide Level 31 mmol/L (21-32) Anion Gap 6 (6-14) Blood Urea Nitrogen 11 mg/dL (8-26) Creatinine 1.1 mg/dL (0.7-1.3) Estimated GFR (Cockcroft-Gault) 68.8 BUN/Creatinine Ratio 10 (6-20) Glucose Level 95 mg/dL (70-99) Calcium Level 9.1 mg/dL (8.5-10.1) Total Bilirubin 0.9 mg/dL (0.2-1.0) Aspartate Amino Transf (AST/SGOT) 21 U/L (15-37) Alanine Aminotransferase (ALT/SGPT) 33 U/L (16-63) Alkaline Phosphatase 100 U/L (46-116) Total Protein 7.0 g/dL (6.4-8.2) Albumin 3.1 g/dL (3.4-5.0) Albumin/Globulin Ratio 0.8 (1.0-1.7) GILSON CARMICHAEL MD Mar 24, 2017 12:37
--- NOTE | 2017-03-24 17:37 | PDOC ---
SURGICAL PROGRESS NOTE Subjective Pt feels better, denies N/V, serena PO, very minimal pain Vital Signs Vital Signs Date Time Temp Pulse Resp B/P (MAP) Pulse Ox O2 Delivery O2 Flow Rate FiO2 03/24/17 16:20 16 96 Room Air 03/24/17 15:00 97.8 71 121/67 (85) 97.8 General: Alert, Oriented X3, Cooperative, No acute distress Abdomen: Soft, No tenderness Labs Laboratory Tests Test 03/23/17 07:27 03/23/17 09:20 03/23/17 09:50 03/24/17 04:20 White Blood Count 12.6 x10^3/uL (4.0-11.0) 11.4 x10^3/uL (4.0-11.0) Red Blood Count 4.46 x10^6/uL (4.30-5.70) 4.19 x10^6/uL (4.30-5.70) Hemoglobin 14.0 g/dL (13.0-17.5) 13.3 g/dL (13.0-17.5) Hematocrit 40.4 % (39.0-53.0) 37.5 % (39.0-53.0) Mean Corpuscular Volume 91 fL (79-100) 90 fL (79-100) Mean Corpuscular Hemoglobin 31 pg (25-35) 32 pg (25-35) Mean Corpuscular Hemoglobin Concent 35 g/dL (31-37) 35 g/dL (31-37) Red Cell Distribution Width 13.1 % (11.5-14.5) 13.2 % (11.5-14.5) Platelet Count 295 x10^3/uL (140-400) 307 x10^3/uL (140-400) Prothrombin Time 13.9 SEC (11.7-14.0) Prothromb Time International Ratio 1.1 (0.8-1.1) Activated Partial Thromboplast Time 26 SEC (24-38) Sodium Level 140 mmol/L (136-145) 140 mmol/L (136-145) Potassium Level 4.2 mmol/L (3.5-5.1) 4.5 mmol/L (3.5-5.1) Chloride Level 103 mmol/L (98-107) 103 mmol/L (98-107) Carbon Dioxide Level 28 mmol/L (21-32) 31 mmol/L (21-32) Anion Gap 9 (6-14) 6 (6-14) Blood Urea Nitrogen 13 mg/dL (8-26) 11 mg/dL (8-26) Creatinine 1.1 mg/dL (0.7-1.3) 1.1 mg/dL (0.7-1.3) Estimated GFR (Cockcroft-Gault) 68.8 68.8 BUN/Creatinine Ratio 12 (6-20) 10 (6-20) Glucose Level 140 mg/dL (70-99) 95 mg/dL (70-99) Calcium Level 8.9 mg/dL (8.5-10.1) 9.1 mg/dL (8.5-10.1) Total Bilirubin 1.2 mg/dL (0.2-1.0) 0.9 mg/dL (0.2-1.0) Aspartate Amino Transf (AST/SGOT) 26 U/L (15-37) 21 U/L (15-37) Alanine Aminotransferase (ALT/SGPT) 49 U/L (16-63) 33 U/L (16-63) Alkaline Phosphatase 110 U/L (46-116) 100 U/L (46-116) Total Protein 7.7 g/dL (6.4-8.2) 7.0 g/dL (6.4-8.2) Albumin 3.6 g/dL (3.4-5.0) 3.1 g/dL (3.4-5.0) Albumin/Globulin Ratio 0.9 (1.0-1.7) 0.8 (1.0-1.7) Lipase 133 U/L (73-393) Urine Collection Type Void Urine Color [place] Urine Clarity Clear Urine pH 6.0 Urine Specific [place] >=1.030 Urine Protein Negative mg/dL (NEG-TRACE) Urine Glucose (UA) Negative mg/dL (NEG) Urine Ketones (Stick) Negative mg/dL (NEG) Urine Blood Negative (NEG) Urine Nitrite Negative (NEG) Urine Bilirubin Negative (NEG) Urine Urobilinogen Dipstick 0.2 mg/dL (0.2 mg/dL) Urine Leukocyte Esterase Negative (NEG) Urine RBC Rare /HPF (0-2) Urine WBC 0 /HPF (0-4) Urine Bacteria 0 /HPF (0-FEW) Urine Mucus Marked /LPF Lactic Acid Level 0.9 mmol/L (0.4-2.0) Neutrophils (%) (Auto) 69 % (31-73) Lymphocytes (%) (Auto) 16 % (24-48) Monocytes (%) (Auto) 12 % (0-9) Eosinophils (%) (Auto) 3 % (0-3) Basophils (%) (Auto) 0 % (0-3) Neutrophils # (Auto) 7.9 x10^3uL (1.8-7.7) Lymphocytes # (Auto) 1.8 x10^3/uL (1.0-4.8) Monocytes # (Auto) 1.4 x10^3/uL (0.0-1.1) Eosinophils # (Auto) 0.3 x10^3/uL (0.0-0.7) Basophils # (Auto) 0.0 x10^3/uL (0.0-0.2) Laboratory Tests Test 03/24/17 04:20 White Blood Count 11.4 x10^3/uL (4.0-11.0) Red Blood Count 4.19 x10^6/uL (4.30-5.70) Hemoglobin 13.3 g/dL (13.0-17.5) Hematocrit 37.5 % (39.0-53.0) Mean Corpuscular Volume 90 fL (79-100) Mean Corpuscular Hemoglobin 32 pg (25-35) Mean Corpuscular Hemoglobin Concent 35 g/dL (31-37) Red Cell Distribution Width 13.2 % (11.5-14.5) Platelet Count 307 x10^3/uL (140-400) Neutrophils (%) (Auto) 69 % (31-73) Lymphocytes (%) (Auto) 16 % (24-48) Monocytes (%) (Auto) 12 % (0-9) Eosinophils (%) (Auto) 3 % (0-3) Basophils (%) (Auto) 0 % (0-3) Neutrophils # (Auto) 7.9 x10^3uL (1.8-7.7) Lymphocytes # (Auto) 1.8 x10^3/uL (1.0-4.8) Monocytes # (Auto) 1.4 x10^3/uL (0.0-1.1) Eosinophils # (Auto) 0.3 x10^3/uL (0.0-0.7) Basophils # (Auto) 0.0 x10^3/uL (0.0-0.2) Sodium Level 140 mmol/L (136-145) Potassium Level 4.5 mmol/L (3.5-5.1) Chloride Level 103 mmol/L (98-107) Carbon Dioxide Level 31 mmol/L (21-32) Anion Gap 6 (6-14) Blood Urea Nitrogen 11 mg/dL (8-26) Creatinine 1.1 mg/dL (0.7-1.3) Estimated GFR (Cockcroft-Gault) 68.8 BUN/Creatinine Ratio 10 (6-20) Glucose Level 95 mg/dL (70-99) Calcium Level 9.1 mg/dL (8.5-10.1) Total Bilirubin 0.9 mg/dL (0.2-1.0) Aspartate Amino Transf (AST/SGOT) 21 U/L (15-37) Alanine Aminotransferase (ALT/SGPT) 33 U/L (16-63) Alkaline Phosphatase 100 U/L (46-116) Total Protein 7.0 g/dL (6.4-8.2) Albumin 3.1 g/dL (3.4-5.0) Albumin/Globulin Ratio 0.8 (1.0-1.7) Problem List Problems Medical Problems: (1) Ruptured appendicitis Status: Acute Assessment/Plan ADAT OK to work towards d/c home on PO abx recommend outpt f/u to consider delayed appendectomy. Also recommend elective colonoscopy Problems: MARGOTH SAUNDERS MD Mar 24, 2017 17:37
--- NOTE | 2017-03-24 21:05 | CONS ---
DATE OF CONSULTATION: 03/24/2017 REQUESTING PHYSICIAN: Dr. Martinez. REASON FOR CONSULTATION: Perforated appendix. HISTORY OF PRESENT ILLNESS: This is a 56-year-old gentleman who had started having abdominal pain about 4 or 5 days before he came in. The patient denied any nausea, vomiting. Denied any fever, although he had some chills and sweats. The patient came in. A CT scan showed perforated appendix. The patient had a white count of 12,000. The patient is put on Zosyn and consult has been requested. The patient says he is already feeling much better. He is actually wanting to go home on IV antibiotics. Dr. Lopez had seen the patient and late surgery has been planned. His abdominal pain is improved, he says. PAST MEDICAL HISTORY: Essentially unremarkable. The patient denies any significant past medical history. SOCIAL HISTORY: Negative for smoking, alcohol, illicit drug use. ALLERGIES: No known drug allergies. CURRENT MEDICATIONS: Reviewed. The patient is on Zosyn. REVIEW OF SYSTEMS: As per HPI, all other systems reviewed are negative. PHYSICAL EXAMINATION: GENERAL: Alert, oriented gentleman, not in distress. VITAL SIGNS: Stable. The patient had temperature 99.7. HEENT: Anicteric. NECK: Supple, no JVP, no lymphadenopathy. LUNGS: Clear. HEART: S1, S2 regular. ABDOMEN: Mild right lower quadrant tenderness. No rebound or guarding. No organomegaly. EXTREMITIES: No edema or cyanosis. SKIN: Unremarkable. NEUROLOGIC: The patient is neurologically intact. LABORATORY DATA: White count is 12.6. BUN and creatinine is normal. Urinalysis unremarkable. CT scan of the abdomen and pelvis reviewed. IMPRESSION: 1. Ruptured appendix. 2. Fever. 3. Leukocytosis. PLAN: Recommend continue Zosyn. If no surgery planned, then the patient can be discharged on IV as the patient is very likely to develop abscess. The patient is okay ____ process was explained. May need CT in about 3-4 days. We will wait for surgery ____ input to decide on when we can let him go home. Thank you very much, Dr. Martinez for giving me the opportunity to participate in this patient's care. ARANZA HERNANDEZ MD DR: JEANINE/mg JOB#: [id number] / [id number]
[2017-03-25] MEDS: PIPERACILLIN/TAZOBACTAM 3.375 GM in IV NORMAL SALINE 50ML 50 ML IV SCH ×2 (00:16→06:23)
[2017-03-25] MEDS: MORPHINE SULFATE 4 MG/ML DISP.SYRIN. IV PRN ×3 (00:42→06:23)
[2017-03-25 03:15] VITALS: BP 114/72
[2017-03-25] MEDS: oxyCODONE/APAP 5/325 1 TAB TABLET PO PRN ×2 (03:32→11:05)
[2017-03-25 07:15] VITALS: BP 115/66
--- NOTE | 2017-03-25 08:47 | PDOC ---
Infectious Disease Note Subjective Subjective pt feeling good, slight pain with movement present, eating well ROS ROS GEN: Denies fevers, chills, sweats HEENT: Denies blurred vision, sore throat CV: Denies chest pain RESP: Denies shortness of air, cough GI: Denies n/v/d NEURO: Denies confusion, dizziness MSK: Denies weakness, joint pain/swelling Vital Sign Vital Signs Vital Signs Date Time Temp Pulse Resp B/P (MAP) Pulse Ox O2 Delivery O2 Flow Rate FiO2 03/25/17 07:15 98.9 68 20 115/66 (82) 96 Room Air 98.9 Physical Exam PHYSICAL EXAM GENERAL: NAD, Alert HEENT: PERRL, OC/OP NECK: Supple, no JVD, no LN LUNGS: Clear HEART: S1S2, no gallop, no murmur ABD: Soft, NT, no organomegaly, no rebound EXT: No edema, no cyanosis BUSINESS ASST: Alert, oriented x 3, no focal neurologic deficit SKIN: No rash IV: ok Objective Assessment Appendicitis with rupture Leukocytosis Abdominal pain Plan Plan of Care cont je,, change to [facility] for d/c ct in about 4-5 days and f/u with me in 1 wk ARANZA HERNANDEZ MD Mar 25, 2017 08:47
[2017-03-25] MEDS ORDERED: ERTAPENEM 1 GM in IV NORMAL SALINE 50ML 50 ML IV SCH (09:00)
[2017-03-25 11:20] VITALS: BP 102/67
[2017-03-25] MEDS ORDERED: POLY119P4 PO (12:39)
[2017-03-25] MEDS ORDERED: OXYC1TAB7 PO (12:39)
--- NOTE | 2017-03-25 13:15 | PDOC ---
SURGICAL PROGRESS NOTE Subjective feels well minimal pain tolerating diet Vital Signs Vital Signs Date Time Temp Pulse Resp B/P (MAP) Pulse Ox O2 Delivery O2 Flow Rate FiO2 03/25/17 11:20 98.8 67 18 102/67 (79) 96 Room Air 98.8 I&O Intake and Output 03/26/17 07:00 Intake Total 240 ml Balance 240 ml Intake Oral 240 ml General: Alert, Oriented X3, Cooperative, No acute distress Abdomen: Soft, No tenderness Labs Laboratory Tests Test 03/24/17 04:20 White Blood Count 11.4 x10^3/uL (4.0-11.0) Red Blood Count 4.19 x10^6/uL (4.30-5.70) Hemoglobin 13.3 g/dL (13.0-17.5) Hematocrit 37.5 % (39.0-53.0) Mean Corpuscular Volume 90 fL (79-100) Mean Corpuscular Hemoglobin 32 pg (25-35) Mean Corpuscular Hemoglobin Concent 35 g/dL (31-37) Red Cell Distribution Width 13.2 % (11.5-14.5) Platelet Count 307 x10^3/uL (140-400) Neutrophils (%) (Auto) 69 % (31-73) Lymphocytes (%) (Auto) 16 % (24-48) Monocytes (%) (Auto) 12 % (0-9) Eosinophils (%) (Auto) 3 % (0-3) Basophils (%) (Auto) 0 % (0-3) Neutrophils # (Auto) 7.9 x10^3uL (1.8-7.7) Lymphocytes # (Auto) 1.8 x10^3/uL (1.0-4.8) Monocytes # (Auto) 1.4 x10^3/uL (0.0-1.1) Eosinophils # (Auto) 0.3 x10^3/uL (0.0-0.7) Basophils # (Auto) 0.0 x10^3/uL (0.0-0.2) Sodium Level 140 mmol/L (136-145) Potassium Level 4.5 mmol/L (3.5-5.1) Chloride Level 103 mmol/L (98-107) Carbon Dioxide Level 31 mmol/L (21-32) Anion Gap 6 (6-14) Blood Urea Nitrogen 11 mg/dL (8-26) Creatinine 1.1 mg/dL (0.7-1.3) Estimated GFR (Cockcroft-Gault) 68.8 BUN/Creatinine Ratio 10 (6-20) Glucose Level 95 mg/dL (70-99) Calcium Level 9.1 mg/dL (8.5-10.1) Total Bilirubin 0.9 mg/dL (0.2-1.0) Aspartate Amino Transf (AST/SGOT) 21 U/L (15-37) Alanine Aminotransferase (ALT/SGPT) 33 U/L (16-63) Alkaline Phosphatase 100 U/L (46-116) Total Protein 7.0 g/dL (6.4-8.2) Albumin 3.1 g/dL (3.4-5.0) Albumin/Globulin Ratio 0.8 (1.0-1.7) Problem List Problems Medical Problems: (1) Ruptured appendicitis Status: Acute Assessment/Plan perforated appendicitis DC today, setting up home IV Abx FU with Dr Lopez 2 weeks Problems: BENOIT VELASQUEZ APRN Mar 25, 2017 13:15
[2017-03-25] MEDS ORDERED: FLU VACC QS2017-18 (36MOS+)/PF 0.5 ML SYRINGE. VAX IM ONE (13:45)
[2017-03-25 15:15] VITALS: BP 110/64
--- NOTE | 2017-03-26 09:45 | DS ---
DATE OF DISCHARGE: 03/25/2017 CHIEF COMPLAINT: Ruptured appendicitis. HOSPITAL COURSE: The patient is a 56-year-old obese gentleman who presented with right lower quadrant pain. CT indeed confirmed appendicitis with high suspicion for rupture. A surgical consult was obtained and recommendations for antibiotic treatments were given. Plan is to allow abscess formation and resect appendix at a later time. Antibiotics were started under the guidance of Dr. Daugherty. A PICC line was placed and the patient was discharged on Invanz for 8 weeks. At that time, a CT of the abdomen will be repeated and he will follow up with Dr. Daugherty in 1 week. PHYSICAL EXAM: VS: stable GEN: A&O, NAD CV: RRR PULM: clear to auscultation ABD: BS+, mild TTP EXTR: no edema DISCHARGE DIAGNOSIS: Ruptured appendicitis. DISCHARGE DISPOSITION: To home. DISCHARGE CONDITION: Stable. DISCHARGE MEDICATIONS: Please refer to MAR. DISCHARGE INSTRUCTIONS: The patient will have CT done in 4-5 days with followup with Dr. Daugherty in 1 week. GILSON CARMICHAEL MD DR: GRICELDA/nts JOB#: [id number] / [id number] JAQUI Varela DR
== END 2017-03-25 14:38 | disposition home health service (06) | DRG 373 ==
LOC: ER 06:59 → 4 NORTH 09:35
PROVIDERS: ADMIT Internal Medicine; ATTEND Internal Medicine
PROC: 02HV33Z Insertion of Infusion Device into Superior Vena Cava, Percutaneous Approach (ICD-10-PCS; principal; 2017-03-23)
DX: K35.2 Acute appendicitis with generalized peritonitis (principal); E66.9 Obesity, unspecified; Z68.36 Body mass index [BMI] 36.0-36.9, adult; Z80.9 Family history of malignant neoplasm, unspecified; D72.829 Elevated white blood cell count, unspecified
CPT/HCPCS: 36415; 36569; 74177; 80053; 81001; 83605; 83690; 85025; 85027; 85610; 85730; 86850; 86900; 86901; 87040; 87086; 90686; 96361; 96365; 96375; J1170; J1335; J2270; J2405; J2543; J7030; Q9967; 99285-25

== ENCOUNTER 2017-03-29 17:49 | Emergency (ER) | payer BC, MEDICAID ==
[~2017-03-29] VITALS: Ht 182.9 cm; Wt 131.5 kg
[~2017-03-29 17:49] MED LIST changes: -CONTRAST GIVEN MC PRN; -IOHEXOL 240 MG/ML 50ML VIAL. PO ONE; -IOHEXOL 300 MG/ML 75 ML VIAL IV ONE
[2017-03-29 18:05] VITALS: BP 115/77
--- NOTE | 2017-03-29 19:28 | PHYS DOC ---
Past Medical History Past Medical History: Other Additional Past Medical Histor: appendacitis-burst(iv therapy vs surgery) Past Surgical History: No Surgical History Alcohol Use: None Drug Use: None Adult General Chief Complaint Chief Complaint: OTHER COMPLAINTS HPI HPI Patient is a 56 year old male presents to the emergency department with a PICC line in his right upper arm. Patient states that he has had the PICC line since his admission on March 25. Patient was admitted for ruptured appendix. He states that he has approximately 4 more days of his antibiotics. Patient states that he was here for a CT scan earlier today they were able to flush it but was unable to get a blood return. Patient states when he got home he was having increased difficulty flushing as well as no blood return. Patient denies any gurgling up into the ear. He denies any history of cough or congestion. Review of Systems Review of Systems Constitutional: Denies fever or chills [] Eyes: Denies change in visual acuity, redness, or eye pain [] HENT: Denies nasal congestion or sore throat [] Respiratory: Denies cough or shortness of breath [] Cardiovascular: No additional information not addressed in HPI [] GI: Denies abdominal pain, nausea, vomiting, bloody stools or diarrhea [] : Denies dysuria or hematuria [] Musculoskeletal: Denies back pain or joint pain [] Integument: Denies rash or skin lesions [] Neurologic: Denies headache, focal weakness or sensory changes [] Endocrine: Denies polyuria or polydipsia [] Current Medications Current Medications Current Medications Medications (Trade) Dose Ordered Sig/[facility] Start Time Stop Time Status Last Admin Dose Admin Alteplase, Recombinant (Cathflo) 2 mg 1X ONCE 03/29/17 19:30 03/29/17 19:31 DC 03/29/17 19:45 2 MG Allergies Allergies Allergies Coded Allergies Type Severity Reaction Last Updated Verified No Known Drug Allergies 03/23/17 No Physical Exam Physical Exam Constitutional: Well developed, well nourished, no acute distress, non-toxic appearance. [] HENT: Normocephalic, atraumatic, bilateral external ears normal, oropharynx moist, no oral exudates, nose normal. [] Eyes: PERRLA, EOMI, conjunctiva normal, no discharge. [] Neck: Normal range of motion, no tenderness, supple, no stridor. [] Cardiovascular:Heart rate regular rhythm, no murmur [] Lungs & Thorax: Bilateral breath sounds clear to auscultation [] Skin: Warm, dry, no erythema, no rash. [] Extremities: No tenderness, no cyanosis, no clubbing, ROM intact, no edema. [] Neurologic: Alert and oriented X 3, normal motor function, normal sensory function, no focal deficits noted. [] Psychologic: Affect normal, judgement normal, mood normal. [] Patient presents to the emergency department for a PICC line failure. He states he is able to flush the PICC line but is unable to get a good blood return. Current Patient Data Vital Signs Vital Signs Date Time Temp Pulse Resp B/P (MAP) Pulse Ox O2 Delivery O2 Flow Rate FiO2 03/29/17 18:05 98.9 75 20 115/77 (90) 97 Room Air 98.9 EKG EKG [] Radiology/Procedures Radiology/Procedures [] Course & Med Decision Making Course & Med Decision Making Pertinent Labs and Imaging studies reviewed. (See chart for details) Patient with a PICC line placement on March 24. He returns here to the emergency department for PICC line failure to obtain return. Patient's chest x- ray identifies the tip of the catheter in the distal SVC however there does appear to be some kinks noted when the arm is down. These are located at the axilla area. Patient did have Cathflo placed through the PICC line in which is able to flush much easier by nursing staff as well as obtaining a good blood return. Patient will be discharged home to continue his antibiotics as prescribed. Recommended that he flush the PICC line no grossly with 20 mL of saline after each dose. Patient will be discharged home in stable condition signs and symptoms to return back to emergency department has been provided. [] Dragon Disclaimer Dragon Disclaimer This electronic medical record was generated, in whole or in part, using a voice recognition dictation system. Departure Departure Impression: Primary Impression: Occluded PICC line Disposition: 01 HOME, SELF-CARE Condition: STABLE Referrals: JAQUI CALHOUN (PCP) Patient Instructions: PICC Home Guide Additional Instructions: Activity as tolerated. Keep the PICC line dressing clean and dry. Your PICC line is positional due to kinking case underneath the axilla area. In order to obtain good flow for your medication she may need to measure arm. Flush her PICC line with 20 mL after providing your antibiotic. Follow-up with your primary care physician as needed as well as your home health nurse. Return back to emergency prior signs symptoms of become worse. Problem Qualifiers Primary Impression: Occluded PICC line Encounter type: initial encounter Qualified Codes: T82.898A - Other specified complication of vascular prosthetic devices, implants and grafts, initial encounter KARL PAIGE APRN Mar 29, 2017 19:28
[2017-03-29] MEDS ORDERED: ALTEPLASE 2 MG VIAL INT CAT ONE (19:30)
--- NOTE | 2017-03-30 08:50 | RAD ---
Portable chest, 03/29/2017: History: Check PICC placement A right PICC is in place extending into the right innominate vein near its junction with the superior vena cava. The heart size and pulmonary vascularity are normal. No pulmonary infiltrates are seen. There is no evidence of pleural fluid. IMPRESSION: The right PICC extends into the right innominate vein near its junction with the superior vena cava.
== END 2017-03-29 20:54 | disposition home or self-care (01) ==
LOC: ER 17:49
DX: T82.898A Other specified complication of vascular prosthetic devices, implants and grafts, initial encounter (principal); Y83.8 Other surgical procedures as the cause of abnormal reaction of the patient, or of later complication, without mention of misadventure at the time of the procedure; Y92.89 Other specified places as the place of occurrence of the external cause
CPT/HCPCS: 37195; 71010; 99284; J2997

== ENCOUNTER → 2017-03-29 | Outpatient (CLI) | payer BC, MEDICAID ==
[2017-03-25 15:15] VITALS: BP 110/64
[~2017-03-29] MED LIST: CONTRAST GIVEN MC PRN; IOHEXOL 240 MG/ML 50ML VIAL. PO ONE; IOHEXOL 300 MG/ML 75 ML VIAL IV ONE; OXYC1TAB7 PO; POLY119P4 PO
--- NOTE | 2017-03-29 14:02 | RAD ---
Cerebral/pelvis Indication: Ruptured appendicitis. Technique: CT abdomen/pelvis with 75 mL of Omnipaque 300 IV and 50 mL of Omnipaque 240 by mouth with multiplanar reformats. Comparison: Previous study from 03/23/2017 Findings: Heart is normal in size. No pericardial or pleural effusion. Clear lung bases. Liver, gallbladder, pancreas, adrenals and kidneys are within normal limits. Spleen is enlarged measuring 18 cm in craniocaudal dimension without focal lesion. No retroperitoneal or pelvic adenopathy. Redemonstrated are inflammatory changes in the right lower quadrant measuring 7.0 x 6.4 x 5.0 cm (series 2 image 66), previously 7.0 x 6.1 x 5.0 cm. There is 3.2 x 3.7 x 3.5 cm loculated fluid collection within this phlegmon abutting the terminal ileum. T no free intraperitoneal air. Appendix is not visualized. Fecal material is seen within terminal ileum likely due to focal ileus. No free pelvic fluid. Bladder is decompressed however show no focal lesion. Prostate and seminal vesicles show no mass lesion. Small bilateral fat-containing inguinal hernias. No suspicious bony lesions. Impression: Relatively stable right lower quadrant phlegmon with small loculated fluid collection compatible with provided history of ruptured appendicitis. PQRS Compliance Statement: One or more of the following individualized dose reduction techniques were utilized for this examination: 1. Automated exposure control 2. Adjustment of the mA and/or kV according to patient size 3. Use of iterative reconstruction technique
== END | disposition home or self-care (01) ==
LOC: CT 09:46
PROVIDERS: ATTEND Internal Medicine Hematology & Oncology
DX: K35.2 Acute appendicitis with generalized peritonitis (principal); L02.91 Cutaneous abscess, unspecified; K40.20 Bilateral inguinal hernia, without obstruction or gangrene, not specified as recurrent; R16.1 Splenomegaly, not elsewhere classified
CPT/HCPCS: 74177; Q9966; Q9967